=== PATIENT | female | born 1960 | race Caucasian/White ===

== ENCOUNTER 2018-03-31 14:58 | Emergency (ER) | payer OTHER ==
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
[2018-03-31] MEDS ORDERED: IBUPROFEN 600 MG TAB PO ONE (15:24)
[2018-03-31 16:32] VITALS: BP 145/81
== END 2018-03-31 16:31 | disposition home or self-care (01) ==
LOC: CED 14:58
DX: S39.012A Strain of muscle, fascia and tendon of lower back, initial encounter (principal); S29.019A Strain of muscle and tendon of unspecified wall of thorax, initial encounter; V43.02XA Car driver injured in collision with other type car in nontraffic accident, initial encounter; Y92.410 Unspecified street and highway as the place of occurrence of the external cause; Y99.8 Other external cause status; M43.17 Spondylolisthesis, lumbosacral region; F17.210 Nicotine dependence, cigarettes, uncomplicated
CPT/HCPCS: 72070-PO; 72100-PO